=== PATIENT | female | born 1945 | race Caucasian/White ===

== ENCOUNTER 2020-01-28 14:16 | Emergency (ER) | payer SELFPAY ==
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
--- OUTSIDE RECORDS SUMMARY | 2020-01-28 14:56 | XMS REPORT | Continuity of Care Document ---
:1945 External Reference #:[id number] Author Name Linda Ruffin O.D. Address [address] [place] [address] Care Team Providers Name Role Phone Amanda Hooker M.D. - Internal Care Team Information Electronics Engineer [phone] Medicine Kiki Salas MD - Internal Medicine Care Team Information Electronics Engineer [phone] Problems Active Problems Provider Date H/O: depression Linda Ruffin O.D. Onset: 08/24/2015 Essential hypertension Linda Ruffin O.D. Onset: 08/24/2015 Psoriasis Linda Ruffin O.D. Onset: 08/24/2015 Gastroesophageal reflux disease Linda Ruffin O.D. Onset: 08/24/2015 Hypercholesterolemia Linda Ruffin O.D. Onset: 08/24/2015 Type 2 diabetes mellitus Linda Ruffin O.D. Onset: 09/15/2015 Nuclear senile cataract Linda Ruffin O.D. Onset: 09/15/2015 Hypermetropia Linda Ruffin O.D. Onset: 09/15/2015 Presbyopia Linda Ruffin O.D. Onset: 09/15/2015 Regular astigmatism Linda Ruffin O.D. Onset: 10/04/2016 Vitreous degeneration Linda Ruffin O.D. Onset: 12/03/2019 Social History Type Date Description Comments Sex Unknown ETOH Use Rarely consumes alcohol Tobacco Use Start: Unknown Patient has never smoked Recreational Drug Use Denies Drug Use Smoking Status Reviewed: 12/03/19 Patient has never smoked Allergies, Adverse Reactions, Alerts Active Allergies Reaction Severity Comments Date Penicillins 08/24/2015 Medications Active Medications SIG Qnty Indications Ordering Provider Date Lantus Unknown 100Unit/ML Solution Losartan Potassium Unknown 100mg Tablets Simvastatin Unknown 10mg Tablets Claritin as needed Unknown 10mg Capsules Aspirin Ec twice a day by Unknown 81mg Tablets DR mouth Fish Oil 2 by mouth every Unknown 1000mg Capsules day Spironolactone Unknown 100mg Tablets Metformin HCL ER Vera, Martina 500mg N.P Tablets ER 24HR Omeprazole Vera, Martina 20mg Capsules DR Saima Venlafaxine HCL ER Vera, Martina 75mg Caps N.P ER 24HR Vitamin B Complex Unknown Tablets Biotin Unknown 1mg Capsules Co Q-10 twice a day Unknown 100mg Capsules morning and night Medications Administered in Office Medication SIG Qnty Indications Ordering Provider Date Dwaine Bledsoe 08/31/2003 Injection Immunizations Description No Information Available Vital Signs Description No Information Available Results Description No Information Available Procedures Description No Information Available Medical Devices Description No Information Available Encounters Description No Information Available Assessments Date Code Description Provider 12/03/2019 E11.9 Type 2 diabetes mellitus without Linda Ruffin O.D. complications 12/03/2019 H25.13 Age-related nuclear cataract, bilateral Linda Ruffin O.D. 12/03/2019 H52.03 Hypermetropia, bilateral Linda Ruffin O.D. 12/03/2019 H52.223 Regular astigmatism, bilateral Linda Ruffin O.D. 12/03/2019 H52.4 Presbyopia Linda Ruffin O.D. 12/03/2019 H43.813 Vitreous degeneration, bilateral Linda Ruffin O.D. Plan of Treatment 12/03/2019 - Linda Ruffin O.D.E11.9 Type 2 diabetes mellitus without complicationsComments:Smoking can increase the risk of developing or worsening any eye related disease, as well as affect your overall health. If you are a smoker, we strongly recommend that you quit.If you are not a smoker, we strongly recommend that you do not start. You have diabetes. I do not detect any changes in both of your retinas from diabetes at this time. Proper control of your diabetes is important for the health of your eyes. Changes in your eyes from diabetes can happen without symptoms, so it is important that you have your eyes examined.Follow up:1 YEAR You can expect to have your eyes dilated at your next visit. If Dr. Ruffin orders any additional testing, it may require extra time. We recommend that you bring sunglasses, as dilation drops often make you light sensitive until they wear off. We always recommend you bring someone to drive you home if you are uncomfortable driving with your eyes dilated. If you have any questions before your next visit, feel free to call our office at .H25.13 Age-related nuclear cataract, bilateralComments:You have been diagnosed with cataracts. If you are happy with your vision as it is now, then we willsee you at your next scheduled appointment. If you feel like your vision is getting worse before your scheduled appointment, please call Masha at [phone].H52.03 Hypermetropia , bilateralComments:You have Hyperopia, or far sightedness, I have given you a prescription for glasses.H52.223 Regular astigmatism, bilateralComments: Astigmatism is a common vision condition that happens when a person's cornea is not symmetrical. Dr. Ruffin has given you a prescription to correct for this.H52.4 PresbyopiaComments:You have presbyopia. This is when the lens in your eye loses the ability to change focus, and happens as we age. A pair of reading glasses will help you see up close.H43.813 Vitreous degeneration, bilateralComments:You have Vitreous Floaters. If you have any changed in your floaters or flashing lights, please contact this office. Functional Status Description No Information Available Mental Status Description No Information Available Referrals Description No Information Available
--- OUTSIDE RECORDS SUMMARY | 2020-01-28 14:56 | XMS REPORT | Continuity of Care Document ---
:1945 External Reference #:[id number] Author Name Celeste Sepulveda MD (transmitted by agent of provider Kaila Powers) Address [address] [place] [address] Care Team Providers Name Role Phone Kiki Salas M.D. - Family Medicine Care Team Information Healthcare Administration Internship Problems Active Problems Provider Date Essential hypertension Martina Oakley NP Onset: 12/10/2017 Hyperlipidemia Martina Oakley NP Onset: 12/10/2017 Type 2 diabetes mellitus Martina Oakley NP Onset: 12/10/2017 Mild depression Martina Oakley NP Onset: 12/10/2017 Social History Type Date Description Comments Sex Unknown Tobacco Use Start: Unknown Never Smoked Cigarettes Smoking Status Reviewed: 01/13/20 Never Smoked Cigarettes ETOH Use Rarely consumes wine 6/yr Tobacco Use Start: Unknown Patient has never smoked Recreational Drug Use Denies Drug Use Exercise Type/Frequency Does not exercise Allergies, Adverse Reactions, Alerts Active Allergies Reaction Severity Comments Date Penicillin she doesn't remember the outcome 12/10/2017 Spironolactone rash 12/10/2017 Medications Active Medications SIG Qnty Indications Ordering Date Provider Venlafaxine HCL Take 1 tab by mouth 90tabs Celeste 01/13/2020 once daily MD Derick 75mg Tablets Shingrix 0.5 milliliters 1units Z23 Celeste 11/18/2019 intramuscular once MD Derick 50mcg/0.5ML at month 0, repeat Suspension Rec at 2 to 6 months once Freestyle Lite Test test blood sugar one 100units E11.65 Kiki Salas MD 01/22/2019 to two times daily Strips or as directed Multivitamin daily 90tabs Martina 03/11/2018 OakleyBLAKE altamirano Tablets Omeprazole 1 by mouth every day 90caps Kiki Salas MD 03/11/[address] Suggs inject 70 units 40ml Kiki Salas MD 07/24/2017 100Unit/ML subcutaneous every Solution day Losartan Potassium Take 1 Tablet By 90tabs Beverly Mouth Once Daily Yaritza Butts 100mg Tablets Simvastatin take 1 tablet daily 90tabs Kiki Salas MD 40mg Tablets Metformin HCL ER 2 tabs every in the 180tabs Beverly morning Yaritza Butts 500mg Tablets ER 24HR Biotin daily Unknown Capsules Co Q10 Maximum daily Unknown Strength Capsules Aspirin Childrens 1 by mouth every day Unknown 81mg Chewtabs Fish Oil Burp-Less once a day Unknown Capsules Tylenol 8 Hour 1 tab every 6 hours Unknown as needed for pain 650mg Tablets ER History Medications Venlafaxine HCL ER 1 by mouth every 30caps Celeste Sepulveda, 11/18/2019 - morning 01/13/2020 150mg Caps ER 24HR Medications Administered in Office Medication SIG Qnty Indications Ordering Provider Date Td(Adult),Unspecified Unknown 12/21/2019 Injection Shingrix pharmacy administered Unknown 12/20/2019 Injection Depomedrol 80MG Haley South M.D. 09/16/2013 Injection Immunizations CPT Code Status Date Vaccine Lot # [id number] Given 12/21/2019 Fluzone High Dose 93308 Given 11/18/2019 Pneumococcal Conjugate Vaccine 13 Valent For [id number] Intramuscular Use 22745 Given 10/12/2018 Influenza Virus Vaccine, Quadrivalent, Split, [id number] Preservative Free 95694 Given 12/10/2017 Influenza Virus Vaccine, Quadrivalent, Split, [id number] Preservative Free 04323 Given 12/10/2017 Pneumococcal Conjugate Vaccine 13 Valent For [id number] Intramuscular Use 83679 Given 02/15/2013 Pneumonia Vaccine Vital Signs Date Vital Result Comment 01/13/2020 1:52pm Height 62.75 inches 5'2.75" Weight 165.00 lb Heart Rate 94 /min BP Systolic Sitting 156 mmHg Lue reg cuff BP Diastolic Sitting 789 mmHg Lue reg cuff Body Temperature 99.5 F O2 % BldC Oximetry 96 % BMI (Body Mass Index) 29.5 kg/m2 11/18/2019 12:52pm Height 62.75 inches 5'2.75" Weight 165.38 lb Heart Rate 79 /min BP Systolic 147 mmHg 136/87 BP Diastolic 85 mmHg 136/87 Body Temperature 98.6 F O2 % BldC Oximetry 99 % BMI (Body Mass Index) 29.5 kg/m2 Results Test Acquired Date Facility Test Result H/L Range Note Urine 01/11/2020 [facility] Ur Microalbumin < 15.[address] (mg/L) mg/[place] [address] [phone] Urine Creatinine 101.46 mg/dL Urine Microalbumin/Creatinine TNP <31 1 Laboratory test 01/10/2020 [facility] Hemoglobin A1c 8.1 % High 4.0-5.[address] (Glyco HGB) [place] [address] [phone] Basic Metabolic 01/10/2020 [facility] Sodium 142 Normal 135- [address] mmol/[place] [address] [phone] Potassium 4.4 mmol/L Normal 3.5-5.0 Chloride 105 mmol/L Normal 101-111 Co2 Carbon Dioxide 30 mmol/L Normal 22-32 Anion Gap 7 mmol/L Normal 2-11 Glucose 101 mg/dL High 70-100 Blood Urea Nitrogen 16 mg/dL Normal 6-24 Creatinine 0.80 mg/dL Normal 0.51-0.95 BUN/Creatinine Ratio 20.0 Normal 8-20 Calcium 9.2 mg/dL Normal 8.6-10.3 Egfr Non- 70.5 >60 Egfr 85.3 >60 3 Lipid Profile 01/10/2020 [facility] Triglycerides 182 mg/dL 4 (Trig/Chol/HDL) [address] [place] [address] [phone] Cholesterol 168 mg/dL 5 HDL Cholesterol 39.5 mg/dL 6 LDL Cholesterol 92 mg/dL 7 Laboratory test finding 08/10/2019 [facility] Hemoglobin A1c 7.0 5-7 Lipid Profile 08/09/2019 [facility] Triglycerides 94 mg/dL 8 (Trig/Chol/HDL) [address] [place] [address] [phone] Cholesterol 159 mg/dL 9 HDL Cholesterol 40.0 mg/dL 10 LDL Cholesterol 100 mg/dL 11 Comp Metabolic 08/09/2019 [facility] Sodium 140 mmol/L Normal 135-[address] [place] [address] [phone] Potassium 4.9 mmol/L Normal 3.5-5.0 Chloride 105 mmol/L Normal 101-111 Co2 Carbon Dioxide 28 mmol/L Normal 22-32 Anion Gap 7 mmol/L Normal 2-11 Glucose 179 mg/dL High 70-100 Blood Urea Nitrogen 21 mg/dL Normal 6-24 Creatinine 0.86 mg/dL Normal 0.51-0.95 BUN/Creatinine Ratio 24.4 High 8-20 Calcium 10.2 mg/dL Normal 8.6-10.3 Total Protein 6.6 g/dL Normal 6.4-8.9 Albumin 4.1 g/dL Normal 3.2-5.2 Globulin 2.5 g/dL Normal 2-4 Albumin/Globulin Ratio 1.6 Normal 1-3 Total Bilirubin 0.40 mg/dL Normal 0.2-1.0 Alkaline Phosphatase 69 U/L Normal 34-104 Alt 50 U/L Normal 7-52 Ast 52 U/L High 13-39 Egfr Non- 64.9 >60 Egfr 78.5 >60 12 1 Unable to calculate due to low microalbumin 2 Therapeutic target for the treatment of diabetes mellitus patients is <7% HBA1C, and in selective patients <6.0%. Please refer to [place] [employer] diabetic care guidelines for further information. 3 Because ethnic data is not always readily available, this report includes an eGFR for both -Americans and non- Americans. The National Kidney Disease Education Program (NKDEP) does not endorse the use of the MDRD equation for patients that are not between the ages of 18 and 70, are , have extremes of body size, muscle mass, or nutritional status, or are non- or non-. According to the National Kidney Foundation, irrespective of diagnosis, the stage of the disease is based on the level of kidney function: Stage Description GFR(mL/min/1.73 m(2)) 1 Kidney damage with normal or decreased GFR 90 2 Kidney damage with mild decrease in GFR 60-89 3 Moderate decrease in GFR 30-59 4 Severe decrease in GFR 15-29 5 Kidney failure <15 (or dialysis) 4 Desirable: <150 Borderline High: 150-199 High: 200-499 Very High: >500 5 Desirable: <200 Borderline High: 200-239 High: >239 6 Low: <40 Desirable: 40-60 High: >60 7 Desirable: <100 Near Optimal: 100-129 Borderline High: 130-159 High: 160-189 Very High: >189 8 Desirable: <150 Borderline High: 150-199 High: 200-499 Very High: >500 9 Desirable: <200 Borderline High: 200-239 High: >239 10 Low: <40 Desirable: 40-60 High: >60 11 Desirable: <100 Near Optimal: 100-129 Borderline High: 130-159 High: 160-189 Very High: >189 12 Because ethnic data is not always readily available, this report includes an eGFR for both -Americans and non- Americans. The National Kidney Disease Education Program (NKDEP) does not endorse the use of the MDRD equation for patients that are not between the ages of 18 and 70, are , have extremes of body size, muscle mass, or nutritional status, or are non- or non-. According to the National Kidney Foundation, irrespective of diagnosis, the stage of the disease is based on the level of kidney function: Stage Description GFR(mL/min/1.73 m(2)) 1 Kidney damage with normal or decreased GFR 90 2 Kidney damage with mild decrease in GFR 60-89 3 Moderate decrease in GFR 30-59 4 Severe decrease in GFR 15-29 5 Kidney failure <15 (or dialysis) Procedures Date Code Description Status 12/03/2019 385107916 Diabetic Retinal Eye Exam Completed 09/02/2018 [id number] Diabetic Retinal Eye Exam Completed 01/13/2018 [id number] Mammogram Completed 03/17/2017 [id number] Colonoscopy Completed 12/27/2016 [id number] Mammogram Completed 05/20/2006 [id number] Bone Mineral Density Test Completed Medical Devices Description No Information Available Encounters Type Date Location Provider Dx Diagnosis Office Visit 08/10/2019 [facility] Kiki Salas MD E11.9 Type 2 diabetes 8:40a Medicine - [facility] mellitus without complications I10 Essential (primary) hypertension E78.5 Hyperlipidemia, unspecified F33.0 Major depressive disorder, recurrent, mild G47.33 Obstructive sleep apnea (adult) (pediatric) Assessments Date Code Description Provider 01/13/2020 M25.511 Pain in right shoulder Celeste Sepulveda MD 01/13/2020 I10 Essential (primary) hypertension Celeste Sepulveda MD 01/13/2020 E11.9 Type 2 diabetes mellitus without complications Celeste Sepulveda MD 01/13/2020 Z23 Encounter for immunization Celeste Sepulveda MD 01/13/2020 F33.9 Major depressive disorder, recurrent, Celeste Sepulveda MD unspecified 11/18/2019 Z00.00 Encounter for general adult medical Celeste Sepulveda MD examination without abnormal findings 11/18/2019 G47.33 Obstructive sleep apnea (adult) (pediatric) Celeste Sepulveda MD 11/18/2019 I10 Essential (primary) hypertension Celeste Sepulveda MD 11/18/2019 E11.9 Type 2 diabetes mellitus without complications Celeste Sepulveda MD 11/18/2019 M25.511 Pain in right shoulder Celeste Sepulveda MD 11/18/2019 Z13.220 Encounter for screening for lipoid disorders Celeste Sepulveda MD 11/18/2019 Z12.11 Encounter for screening for malignant neoplasm Celeste Sepulveda MD of colon 11/18/2019 Z12.31 Encounter for screening mammogram for Celeste Sepulveda MD malignant neoplasm of breast 11/18/2019 Z12.4 Encounter for screening for malignant neoplasm Celeste Sepulveda MD of cervix 11/18/2019 Z23 Encounter for immunization Celeste Sepulveda MD 11/18/2019 N95.1 Menopausal and female climacteric states Celeste Sepulveda MD 11/18/2019 F33.9 Major depressive disorder, recurrent, Celeste Sepulveda MD unspecified 08/10/2019 E11.9 Type 2 diabetes mellitus without complications Kiki Salas MD 08/10/2019 I10 Essential (primary) hypertension Kiki Salas MD 08/10/2019 E78.5 Hyperlipidemia, unspecified Kiki Salas MD 08/10/2019 F33.0 Major depressive disorder, recurrent, mild Kiki Salas MD 08/10/2019 G47.33 Obstructive sleep apnea (adult) (pediatric) Kiki Salas MD Plan of Treatment Future Appointment(s):03/31/2020 10:40 am - [facility] - Carly Duque [facility]01/13/2020 - Celeste Sepulveda, MDM25.511 Pain in right [id number] Essential (primary) hypertensionComments:Your BP is elevated at the visit today.Please continue to monitor the salt and sodium in your diet for better BP control. We may need to consider increasing or adding to your medication regimen if yourBP continues to be elevatedExercising for at least 150 min weekly can have benefits on the cardiovascular systemFollow up:2 pwbkdoT32.9 Type 2 diabetes mellitus without complicationsComments:Your A1c levels are elevated to 8.1Please continue to take your Lantus 70u, but change to bedtimeContinue to take metformin once daily in the morningPlease log your AM fingersticks for the next week and we will call you to find the [id number] Encounter for [id number] Major depressive disorder, recurrent, unspecifiedComments:Decrease venlafaxine to 75mg daily Functional Status Description No Information Available Mental Status Description No Information Available Referrals Refer to Dr Reason for Referral Status Appt Date [facility] Sent 01/17/2020 [address] [phone] [facility] Sleep Clinic pt with know MARIZOL, unable to use old machine bc of Sent 00 mask problems, overdue for new study [address] [place] [phone]
--- OUTSIDE RECORDS SUMMARY | 2020-01-28 14:56 | XMS REPORT | Continuity of Care Document ---
:1945 External Reference #:[id number] Author Name Carly Duque MD (transmitted by agent of provider Milana Emery) Address [address], [address] [place] [address] Care Team Providers Name Role Phone Kiki Salas M.D. - Family Medicine Care Team Information General Office Worker [phone] Problems Active Problems Provider Date Essential hypertension Martina Oakley NP Onset: 12/10/2017 Hyperlipidemia Martina Oakley NP Onset: 12/10/2017 Type 2 diabetes mellitus Martina Oakley NP Onset: 12/10/2017 Mild depression Martina Oakley NP Onset: 12/10/2017 Social History Type Date Description Comments Sex Unknown Tobacco Use Start: Unknown Never Smoked Cigarettes Smoking Status Reviewed: 01/26/20 Never Smoked Cigarettes ETOH Use Rarely consumes wine 6/yr Tobacco Use Start: Unknown Patient has never smoked Recreational Drug Use Denies Drug Use Exercise Type/Frequency Does not exercise Allergies, Adverse Reactions, Alerts Active Allergies Reaction Severity Comments Date Penicillin she doesn't remember the outcome 12/10/2017 Spironolactone rash 12/10/2017 Medications Active Medications SIG Qnty Indications Ordering Date Provider Venlafaxine HCL ER 1 by mouth every day 90caps Celeste 01/14/2020 MD Derick 75mg Caps ER 24HR Shingrix 0.5 milliliters 1units Z23 Celeste 11/18/2019 intramuscular once MD Derick 50mcg/0.5ML at month 0, repeat Suspension Rec at 2 to 6 months once Freestyle Lite Test test blood sugar one 100units E11.65 Kiki Salas MD 01/22/2019 to two times daily Strips or as directed Multivitamin daily 90tabs Martina 03/11/2018 BLAKE Oakley Tablets Omeprazole 1 by mouth every day 90caps Kiki Salas MD 03/11/[address] Suggs inject 60 units 40ml Kiki Salas MD 07/24/2017 100Unit/ML [...] 650mg Tablets ER History Medications Venlafaxine HCL Take 1 tab by 90tabs Celeste Sepulveda, 01/13/2020 - 75mg mouth once daily 01/14/2020 Tablets Venlafaxine HCL ER 1 by mouth every 30caps Celeste Sepulveda, 11/18/2019 - morning 01/13/2020 150mg Caps ER 24HR Medications Administered in Office Medication SIG Qnty Indications Ordering Provider Date Td(Adult),Unspecified Unknown 12/21/2019 Injection Shingrix pharmacy administered Unknown 12/20/2019 Injection Depomedrol 80MG Haley South M.D. 09/16/2013 Injection Immunizations CPT Code Status Date Vaccine Lot # [id number] Given 12/21/2019 Fluzone High Dose 29385 Given 11/18/2019 Pneumococcal Conjugate Vaccine 13 Valent For [id number] Intramuscular Use 36298 Given 10/12/2018 Influenza Virus Vaccine, Quadrivalent, Split, [id number] Preservative Free 20193 Given 12/10/2017 Influenza Virus Vaccine, Quadrivalent, Split, [id number] Preservative Free 92028 Given 12/10/2017 Pneumococcal Conjugate Vaccine 13 Valent For [id number] Intramuscular Use 73208 Given 02/15/2013 Pneumonia Vaccine Vital Signs Date Vital Result Comment 01/26/2020 9:37am Height 62.75 inches 5'2.75" Weight 166.00 lb Heart Rate 84 /min BP Systolic Sitting 158 mmHg O2 % BldC Oximetry 96 % BMI (Body Mass Index) 29.6 kg/m2 Neck Circumference in inches 16 01/13/2020 1:52pm Height 62.75 inches 5'2.75" Weight 165.00 lb Heart Rate 94 /min BP Systolic Sitting 156 mmHg Lue reg cuff BP Diastolic Sitting 789 mmHg Lue reg cuff Body Temperature 99.5 F O2 % BldC Oximetry 96 % BMI (Body Mass Index) 29.5 kg/m2 Results Test Acquired Date Facility Test Result H/L Range Note Urine 01/11/2020 [facility] Ur Microalbumin < 15.[address] (mg/L) mg/[place] [address] [phone] Urine Creatinine 101.46 mg/dL Urine Microalbumin/Creatinine TNP <31 1 Laboratory test 01/10/2020 [facility] Hemoglobin A1c 8.1 % High 4.0-5.[address] (Glyco HGB) [place] [address] [phone] Basic Metabolic 01/10/2020 [facility] Sodium 142 Normal 135- [address] mmol/[place] [address] [phone] Potassium 4.4 mmol/L Normal 3.5-5.0 Chloride 105 mmol/L Normal 101-111 Co2 Carbon Dioxide 30 mmol/L Normal 22-32 Anion Gap 7 mmol/L Normal 2-11 Glucose 101 mg/dL High 70-100 Blood Urea Nitrogen 16 mg/dL Normal 6-24 Creatinine 0.80 mg/dL Normal 0.51-0.95 BUN/Creatinine Ratio 20.0 Normal 8-20 Calcium 9.2 mg/dL Normal 8.6-10.3 Egfr Non- 70.5 >60 Egfr 85.3 >60 3 Lipid Profile 01/10/2020 [facility] Triglycerides 182 mg/dL 4 (Trig/Chol/HDL) [address] [place] [address] [phone] Cholesterol 168 mg/dL 5 HDL Cholesterol 39.5 mg/dL 6 LDL Cholesterol 92 mg/dL 7 Laboratory test finding 08/10/2019 [facility] Hemoglobin A1c 7.0 5-7 Lipid Profile 08/09/2019 [facility] Triglycerides 94 mg/dL 8 (Trig/Chol/HDL) [address] [place] [address] [phone] Cholesterol 159 mg/dL 9 HDL Cholesterol 40.0 mg/dL 10 LDL Cholesterol 100 mg/dL 11 Comp Metabolic 08/09/2019 [facility] Sodium 140 mmol/L Normal 135-[address] [place] [address] [phone] Potassium 4.9 mmol/L Normal 3.5-5.0 Chloride 105 [...] in selective patients <6.0%. Please refer to [place] [employer] diabetic care guidelines for further [...] dialysis) Procedures Date Code Description Status 12/03/2019 [id number] Diabetic Retinal Eye Exam Completed 09/02/2018 [id number] Diabetic Retinal Eye Exam Completed 01/13/2018 [id number] Mammogram Completed 03/17/2017 [id number] Colonoscopy Completed 12/27/2016 [id number] Mammogram Completed 05/20/2006 [id number] Bone Mineral Density Test Completed Medical Devices Description No Information Available Encounters Type Date Location Provider Dx Diagnosis Office Visit 01/13/2020 [facility] Celeste Sepulveda, M25.511 Pain in right 2:00p Medicine - [facility] MD shoulder I10 Essential (primary) hypertension E11.9 Type 2 diabetes mellitus without complications Z23 Encounter for immunization F33.9 Major depressive disorder, recurrent, unspecified Office Visit 08/10/2019 8:40a [facility] Kiki Salas, E11.9 Type 2 diabetes Medicine - MD mellitus without [facility] complications I10 Essential (primary) hypertension E78.5 Hyperlipidemia, unspecified F33.0 Major depressive disorder, recurrent, mild G47.33 Obstructive sleep apnea (adult) (pediatric) Assessments Date Code Description Provider 01/26/2020 R06.83 Snoring Carly Duque MD 01/26/2020 R53.83 Other fatigue Carly Duque MD 01/26/2020 G47.00 Insomnia, unspecified Carly Duque MD 01/13/2020 M25.511 Pain in right shoulder Celeste [...] Kiki Salas MD Plan of Treatment Future Appointment(s):02/01/2020 9:30 am - Nuvia Blake DNP, RN, [employer] at [facility]03/31/2020 10:40 am - Kiki Salas MD at [facility] Internal Medicine - [facility]01/26/2020 - Carly Duque, MDR06.83 SnoringNew Orders:Home Sleep Testing, Scheduled: 01/26/20Follow up:2 vgvwnA60.83 Other srrfzptI27.00 Insomnia, unspecified Functional Status Description No Information Available Mental Status Description No Information Available Referrals Refer to Reason for Referral Status Appt Date [facility] [facility] [place] 01/17/2020 [address] [place] [phone] [facility] [place] [facility] pt with know MARIZOL, unable to use old machine bc of Sent 00/ mask problems, overdue for new study [address] [place] [place] [phone] [phone]
[2020-01-28 15:45] VITALS: BP 160/90
== END 2020-01-28 15:44 | disposition home or self-care (01) ==
LOC: ED 14:16
DX: R51 Headache (principal); M50.323 Other cervical disc degeneration at C6-C7 level; V43.52XA Car driver injured in collision with other type car in traffic accident, initial encounter; Y92.410 Unspecified street and highway as the place of occurrence of the external cause; E11.9 Type 2 diabetes mellitus without complications; Z79.4 Long term (current) use of insulin; Z79.84 Long term (current) use of oral hypoglycemic drugs; I10 Essential (primary) hypertension; Z79.899 Other long term (current) drug therapy; Z79.82 Long term (current) use of aspirin; Z88.0 Allergy status to penicillin
CPT/HCPCS: 70450; 72125; 99282